=== PATIENT | male | born 1995 | race African-American/Black ===

== ENCOUNTER 2025-07-31 17:57 | Emergency (ER) | payer SELFPAY ==
[2025-07-31 18:00] VITALS: BP 128/89
== END 2025-07-31 18:39 | disposition left against medical advice (07) ==
LOC: EMR 17:57
PROVIDERS: EMERGENCY PHYSICIAN Emergency Medicine
DX: R07.9 Chest pain, unspecified (principal); R06.02 Shortness of breath; M79.605 Pain in left leg; M79.604 Pain in right leg; D57.1 Sickle-cell disease without crisis; Z53.21 Procedure and treatment not carried out due to patient leaving prior to being seen by health care provider
CPT/HCPCS: 93005